=== PATIENT | female | born 1975 | race Two or more races ===

== ENCOUNTER 2018-11-22 21:53 | Emergency (ER) | payer OTHER ==
[~2018-11-22] VITALS: Ht 157.5 cm; Wt 72.6 kg
[2018-11-23 00:01] VITALS: BP 142/96
[2018-11-23] MEDS ORDERED: ACETAMINOPHEN/CODEINE#3 (300/30mg) TAB PO ONE (00:15)
[2018-11-23] MEDS ORDERED: DexAMETHasone SOD PHOS 10MG/1ML VIAL INJ IM ONE (00:15)
[2018-11-23] MEDS ORDERED: BACLOFEN 10 MG TAB PO ONE (00:15)
== END 2018-11-23 00:49 | disposition home or self-care (01) ==
LOC: ER 22:01
DX: M62.838 Other muscle spasm (principal); M54.2 Cervicalgia; M54.5 Low back pain; V49.49XA Driver injured in collision with other motor vehicles in traffic accident, initial encounter; Y93.89 Activity, other specified; Y99.8 Other external cause status; Y92.488 Other paved roadways as the place of occurrence of the external cause
CPT/HCPCS: 72040; 72100; 96372; 99283; J1100